=== PATIENT | male | born 2005 | race African-American/Black ===

== ENCOUNTER 2024-02-22 02:13 | Emergency (ER) | payer BC ==
[2024-02-22 02:25] VITALS: BP 131/86; PULSE 74; RESP 98; TEMP 98.5; BMI 24.3
[2024-02-22] MEDS ORDERED: KETOROLAC TROMETHAMINE 30 MG/1 ML VIAL ONE (02:59)
[2024-02-22] MEDS: KETOROLAC TROMETHAMINE 30 MG/1 ML VIAL IM ONE (03:25)
== END 2024-02-22 04:20 | disposition home or self-care (01) ==
LOC: JER 02:13
PROC: 3E0233Z Introduction of Anti-inflammatory into Muscle, Percutaneous Approach (ICD-10-PCS; principal; 2024-02-22)
DX: M25.511 Pain in right shoulder (principal); M25.512 Pain in left shoulder; M25.562 Pain in left knee; X58.XXXA Exposure to other specified factors, initial encounter
CPT/HCPCS: 73030-TC-LT-FY; 73030-TC-RT-FY; 73560-TC-RT-FY; 99284-25